=== PATIENT | male | born 1980 | race Caucasian/White ===

== ENCOUNTER 2022-07-25 23:53 | Emergency (ER) | payer SELFPAY ==
[~2022-07-25] VITALS: Ht 165.1 cm; Wt 100.0 kg
[2022-07-25 23:55] VITALS: BP 131/96
== END 2022-07-26 01:30 | disposition left against medical advice (07) ==
LOC: ER 23:53
DX: S00.81XA Abrasion of other part of head, initial encounter (principal); X58.XXXA Exposure to other specified factors, initial encounter; Y93.89 Activity, other specified; Y92.89 Other specified places as the place of occurrence of the external cause; Y99.8 Other external cause status; F10.129 Alcohol abuse with intoxication, unspecified; Y90.0 Blood alcohol level of less than 20 mg/100 ml
CPT/HCPCS: 99283